=== PATIENT | male | born 1970 | race Caucasian/White ===

== ENCOUNTER 2021-09-26 17:56 | Emergency (ER) | payer SELFPAY ==
[2021-09-26 21:16] LABS: HEMOGLOBIN 14.3 gm/dl (14.0-17.5); RED BLOOD COUNT 4.7 M/UL (4.20-5.50); WHITE BLOOD COUNT 14.1 K/UL (4.5-11.0)
[2021-09-26 21:29] LABS: BUN/CREATININE RATIO 9 (0-10)
[2021-09-26] MEDS ORDERED: OMNICEF 300 MG300 MG PO (21:56)
== END 2021-09-26 22:00 | disposition home or self-care (01) ==
LOC: ER1 17:56
PROVIDERS: Student in an Organized Health Care Education/Training Program
DX: N45.1 Epididymitis (principal)
CPT/HCPCS: 76870; 80053; 81001; 85025; 99284